=== PATIENT | female | born 2005 ===

== ENCOUNTER → 2024-02-26 | Outpatient (CLI) | payer BC ==
[2024-02-26] VITALS (19 sets, daily range): BP systolic 64–131; BP diastolic 39–84; PULSE 52–125
== END | disposition home or self-care (01) ==
LOC: CARD DIAG 08:05
PROVIDERS: ATTEND Internal Medicine Interventional Cardiology
DX: R42 Dizziness and giddiness (principal)
CPT/HCPCS: 93660